=== PATIENT | male | born 1985 | race African-American/Black ===

== ENCOUNTER → 2019-05-06 | Outpatient (CLI) | payer MEDICAID, OTHER ==
--- NOTE | 2019-05-06 13:49 | REP ---
Right shoulder three views : There is no fracture or dislocation. Mineralization and joint spaces are normal. There are no calcifications or foreign bodies. Impression: Negative right shoulder . Electronically Signed by Saji Leroy MD 05/06/2019 01:40 P
== END ==
LOC: M RAD 12:28
PROVIDERS: ATTEND Physician Assistant
DX: M25.511 Pain in right shoulder (principal)